=== PATIENT | male | born 1970 | race Caucasian/White ===

== ENCOUNTER 2020-03-24 13:44 | Emergency (ER) | payer OTHER ==
[~2020-03-24] VITALS: Ht 193 cm; Wt 102.3 kg
[2020-03-24 13:48] VITALS: TEMP 98.2
[2020-03-24 14:14] LABS: BASO # 0.1 (0.0-0.2); BASO % 0.9 % (0.0-2.0); EOS # 0.4 (0.0-0.7); EOS % 5.5 % (0-4.0); GRAN # 3.5 (1.4-6.5); GRAN % 51.5 % (42.2-75.2); HEMOGLOBIN 14.3 g/dl (13.5-18.0); LYMPH # 2.1 (1.2-3.4); LYMPH % 31.8 % (20.0-51.0); MEAN CELL VOLUME 95 fl (80.0-100.0); MEAN CORPUSCULAR HEMOGLOBIN 32 pg (27.0-31.0); MEAN CORPUSCULAR HGB CONC 33 g/dl (33.0-37.0); MEAN PLATELET VOLUME 9.6 fl (7.4-10.4); MONO # 0.7 (0.1-0.6); PLATELET COUNT 263 K/mm3 (130-400); RED BLOOD COUNT 4.54 M/mm3 (4.20-5.60); REDCELL DISTRIBUTION WIDTH-CV 12.9 % (11.5-14.5)
[2020-03-24 14:35] LABS: ALBUMIN 4.4 gm/dL (3.5-5.0); BILIRUBIN,TOTAL 0.8 mg/dL (0.0-1.0); CALCIUM 9.3 mg/dL (8.4-10.2); CREATININE, serum 0.81 (0.66-1.25); POTASSIUM 4.3 mmol/L (3.4-5.0); TOTAL PROTEIN 7.6 gm/dL (6.4-8.2)
[2020-03-24 14:36] LABS: C-REACTIVE PROTEIN 0.5 mg/dL (0.0-0.9)
[2020-03-24] MEDS ORDERED: DEPAKOTE ER 25250 MG PO (14:46)
[2020-03-24 15:01] VITALS: BP 133/71; PULSE 63
== END 2020-03-24 15:01 | disposition home or self-care (01) ==
LOC: COL.ER 13:44
PROVIDERS: Family Medicine
DX: G43.909 Migraine, unspecified, not intractable, without status migrainosus (principal); R53.1 Weakness

== ENCOUNTER → 2020-05-19 | Outpatient (CLI) | payer OTHER ==
[~2020-05-19] MED LIST: DEPAKOTE ER 25250 MG PO
== END ==
LOC: COL.RAD 05-18 07:30
DX: M47.812 Spondylosis without myelopathy or radiculopathy, cervical region (principal); G43.109 Migraine with aura, not intractable, without status migrainosus
CPT/HCPCS: A9585

== ENCOUNTER → 2020-06-03 | Outpatient (CLI) | payer OTHER | LOC: COL.CARD 09:47 | DX: G43.109 Migraine with aura, not intractable, without status migrainosus (principal); R53.1 Weakness; R94.01 Abnormal electroencephalogram [EEG]; M54.2 Cervicalgia ==